=== PATIENT | male | born 1995 ===

== ENCOUNTER → 2020-05-24 | Outpatient (CLI) | payer OTHER | END | disposition home or self-care (01) | LOC: OLS 16:08 → LAB SHORT 16:08 | DX: R59.0 Localized enlarged lymph nodes (principal) | CPT/HCPCS: 87081 ==

== ENCOUNTER 2021-07-28 18:20 | Emergency (ER) | payer OTHER ==
[~2021-07-28] VITALS: Ht 180.3 cm; Wt 99.8 kg
== END 2021-07-28 20:13 | disposition home or self-care (01) ==
LOC: ER 18:20
DX: S61.412A Laceration without foreign body of left hand, initial encounter (principal); W26.0XXA Contact with knife, initial encounter
CPT/HCPCS: 12001; 99282-25

== ENCOUNTER 2024-09-04 10:40 | Emergency (ER) | payer OTHER ==
[~2024-09-04] VITALS: Ht 180.3 cm; Wt 97.5 kg
[2024-09-04 10:55] VITALS: BP 173/93
[2024-09-04] MEDS ORDERED: Diazepam 5 MG Tab PO ONE (12:30)
[2024-09-04] MEDS ORDERED: Ketorolac Tromethamine 30mg Vial IM ONE (12:30)
== END 2024-09-04 12:53 | disposition home or self-care (01) ==
LOC: ER 10:40
DX: M54.10 Radiculopathy, site unspecified (principal); X58.XXXA Exposure to other specified factors, initial encounter; I10 Essential (primary) hypertension
CPT/HCPCS: 93971; 96372; 99283-25; A9270; J1885

== ENCOUNTER 2024-09-20 14:41 | Emergency (ER) | payer OTHER ==
[~2024-09-20] VITALS: Ht 180.3 cm; Wt 99.8 kg
[2024-09-20 14:52] VITALS: BP 135/92
[2024-09-20] MEDS ORDERED: NS 1,000 ML IV SCH (15:10)
[2024-09-20 15:14] LABS: BASOPHILS ABSOLUTE AUTO 0.05 K/mm3 (0.00-0.23); BASOPHILS PERCENT AUTO 0 % (0-2); EOSINOPHILS ABSOLUTE AUTO 0.15 K/mm3 (0.00-0.68); EOSINOPHILS PERCENT AUTO 1 % (0-6); Hematocrit 39.4 % (37.0-53.0); Hemoglobin 14.2 g/dL (13.5-17.5); IMMATURE GRAN ABSOLUTE AUTO 0.07 K/mm3 (0.00-0.10); IMMATURE GRAN PERCENT AUTO 1 % (0-1); LYMPHOCYTES ABSOLUTE AUTO 1.18 K/mm3 (0.84-5.20); LYMPHOCYTES PERCENT AUTO 9 % (21-46); MONOCYTES PERCENT AUTO 5 % (4-13); Mean Corpuscular HGB 29.5 pg (26.0-34.0); Mean Corpuscular Volume 82 fL (80-100); NEUTROPHILS ABSOLUTE AUTO 11.54 K/mm3 (1.96-9.15); NEUTROPHILS PERCENT AUTO 84 % (41-73); Platelet Count 329 K/mm3 (150-400); RDW Coefficient Variation 11.8 % (11.7-14.2); RDW Standard Deviation 35.3 fL (35.1-46.3); Red Blood Cell Count 4.81 M/mm3 (4.30-5.90); White Blood Cell Count 13.69 K/mm3 (4.00-11.30)
[2024-09-20 15:32] LABS: Magnesium, Blood 1.8 mg/dL (1.6-2.4)
[2024-09-20 15:33] LABS: Bun/Creatinine Ratio 14.9 (12.0-20.0); Calcium, Blood 8.8 mg/dL (8.5-10.1); Creatinine, Blood 0.87 mg/dL (0.60-1.20); Potassium, Blood 3.9 mmol/L (3.5-5.5)
[2024-09-20 16:05] LABS: Influenza A, PCR NEGATIVE (NEGATIVE); Influenza B, PCR NEGATIVE (NEGATIVE); Resp Syncytial Virus, PCR NEGATIVE (NEGATIVE); SARS-Cov-2 (COVID-19) PCR, MMC NEGATIVE (NEGATIVE)
== END 2024-09-20 16:00 | disposition home or self-care (01) ==
LOC: ER 14:41
PROVIDERS: Emergency Medicine
DX: R42 Dizziness and giddiness (principal); T46.1X5A Adverse effect of calcium-channel blockers, initial encounter
CPT/HCPCS: 0241U; 71045; 80048; 83735; 85025; 93005; 93010; 99285-25